=== PATIENT | female | born 1985 | race Hispanic/Latino ===

== ENCOUNTER 2018-04-12 00:36 | Outpatient (CLI) | payer BC ==
[2018-04-12 17:20] LABS: Hemoglobin 12.9 g/dL (12.0-16.0); Mean Corpuscular HGB CONC 33.2 g/dL (32.0-36.0); Mean Corpuscular Hemoglobin 30.5 pg (27.0-31.0); Mean Corpuscular Volume 91.9 fL (78.0-98.0); Mean Platelet Volume 7.7 fL (7.4-10.4); Platelet Count 303 thou/uL (130-400); RBC Distribution Width 12.2 % (11.5-14.5); Red Blood Cell (RBC) Count 4.23 mill/uL (4.20-5.40); White Blood Cell (WBC) Count 7.2 thou/uL (4.8-10.8)
[2018-04-12 17:41] LABS: BHCG - Serum Negative (NEGATIVE); Pregs Control Background? CLEAR/WHITE (CLR/WHITE); Pregs Control Bar Appear? YES (CONTROL BAR)
== END 2018-04-12 00:37 | disposition home or self-care (01) ==
LOC: LABBT 00:36
PROVIDERS: ATTEND Obstetrics & Gynecology
DX: Z01.812 Encounter for preprocedural laboratory examination (principal); N83.202 Unspecified ovarian cyst, left side; N83.201 Unspecified ovarian cyst, right side
CPT/HCPCS: 84703; 85027; 86850; 86900; 86901

== ENCOUNTER 2018-04-17 05:56 | Day surgery (SDC) | payer BC ==
[2018-04-12 15:51] VITALS: BMI 25.8
[2018-04-17] MEDS ORDERED: Famotidine/PF 20 mg/2ml Vial ONE ×2 (06:22→06:24)
[2018-04-17] MEDS ORDERED: Gabapentin 300 MG CAP ONE (06:22)
[2018-04-17] MEDS ORDERED: CeleCOXIB 100 MG CAP ONE ×3 (06:24→06:27)
[2018-04-17] MEDS ORDERED: Fentanyl 100 MCG/2 ML VIAL ONE ×2 (06:24→08:53)
[2018-04-17] MEDS ORDERED: Bupivacaine HCl 0.5%/Epinephrine 1:200,000/PF 30 ml Vial ONE (06:54)
--- NOTE | 2018-04-17 16:43 | OP ---
DATE OF PROCEDURE: 04/17/2018 PREOPERATIVE DIAGNOSES: 1. Bilateral ovarian cyst. 2. Pelvic pain. POSTOPERATIVE DIAGNOSIS: Bilateral dermoid ovarian cyst. PROCEDURES PERFORMED: Robotic-assisted total laparoscopic right and left ovarian cystectomy. SURGEON: Hal Dos Santos DO ASSIST: Veronica Simon DO ANESTHESIA: GETA. COMPLICATIONS: None. OPERATIVE FINDINGS: 1. Normal vaginal mucosa and cervix. 2. Normal-appearing uterus and tubes. 3. Bilaterally enlarged ovaries each approximately 5 to 6 cm. 4. Left ovarian cyst with care and caseous substance noted on rupture of cyst wall. 5. Right ovarian cyst with findings consistent with dermoid cyst. 6. Surgical site hemostatic. DESCRIPTION OF PROCEDURE: The patient was taken back to the OR with IV fluids running. When she was in the OR, anesthesia was obtained and the patient was placed in low dorsal lithotomy position. The abdomen and vagina were then prepped and draped in normal fashion for gynecological laparoscopy. A Godfrey catheter was placed into the bladder to drain the bladder during the case. An operative speculum was placed in the vagina and the anterior lip of the cervix was grasped with a single-tooth tenaculum. Uterus sounded to approximately 7 cm. A Hulka clamp was placed into the uterus and clamped to the cervix in normal fashion if needed for a uterine manipulator with a single-tooth tenaculum. An operative speculum was then removed. The surgeon's gloves were changed and attention was then turned to the laparoscopic portion of the procedure. Beginning at the patient's infraumbilical fold, local anesthesia was placed under the skin. A 12 mm skin incision was made with a scalpel. The Veress needle was placed through this skin incision and the abdomen was insufflated without difficulty. A 12 mm trocar was then placed after the Veress needle was removed through this incision. The laparoscope was then placed through this trocar with the above findings noted. Beginning on the patient's right side, in the right lower quadrant, an 8 mm trocar was placed after local anesthesia was placed under the skin and an 8 mm port incision was made with a scalpel in similar fashion. The left lower quadrant 8 mm trocar and the right upper quadrant 11 mm trocar were all placed under direct visualization without difficulty. After all 4 trocars were placed, the robotic arms were docked to the patient's bedside against the trocars. The laparoscopic instruments were placed under direct visualization into the pelvis, they includes a monopolar scissor and a bipolar grasper. Beginning on the patient's left side, the librarian assistant grasped the left utero-ovarian ligament, stabilized the left ovary. The ovary was inspected and the abnormal versus normal ovarian parenchyma was identified with the monopolar scissors. An incision was made over the abnormal appearing ovarian parenchyma. Through this incision, the monopolar scissors were used with traction countertraction technique to gently dissect the left ovarian dermoid cyst. This dissection was completed with minimal bleeding and with preservation of left ovarian tissue. The cyst was placed into the cul-de-sac and dissection was then addressed on the abnormal appearing contralateral ovary. The ovary was grasped again by the librarian assistant at the utero-ovarian ligament. The ovary was inspected with the abnormal appearing parenchyma identified and incision was made with the monopolar scissors over this abnormal area. The ovarian tissue was then regrasped and with a combination of bipolar and monopolar cautery, the cyst was shelled out of the ovary. The two dermoid cysts were then placed into an EndoCatch bag. The ovaries were inspected bilaterally and irrigated. Any small areas of bleeding within the ovarian capsule were controlled with bipolar and monopolar cautery. Once hemostasis was noted at both dissection area, both dissection points from the ovaries. The pelvis was copiously irrigated and suctioned dry. The EndoCatch bag was removed from the right upper quadrant trocar. The gas was released from the abdomen and no bleeding was noted from the ovary. All instruments were then removed from the abdomen. The gas was released from the abdomen. The patient was taken out of Trendelenburg position. A Vicryl suture was used to close the 12 mm to infraumbilical trocar site at the fascia. All four skin incisions were closed with Monocryl suture and dressed with Dermabond dressing. The tenaculum. The Hulka clamp was removed and the tenaculum site was inspected. The patient was then clean, dry, and taken out of lithotomy position. She was extubated and transferred to the recovery room in good condition. The findings were explained to her and pictures were printed out for the patient's chart. Job ID: [id number] [facility]
== END 2018-04-17 12:40 | disposition home or self-care (01) ==
LOC: SDC 05:56
PROVIDERS: ATTEND Obstetrics & Gynecology
PROC: 0UB24ZZ Excision of Bilateral Ovaries, Percutaneous Endoscopic Approach (ICD-10-PCS; principal; 2018-04-17)
DX: D27.1 Benign neoplasm of left ovary (principal); D27.0 Benign neoplasm of right ovary
CPT/HCPCS: 88307; J0670; J3010; S0028

== ENCOUNTER 2018-04-20 11:17 | Inpatient (IN) | payer BC ==
[~2018-04-20 11:17] MED LIST: ISOVUE-370 76%-LOCM 1 ML ONE
[2018-04-20] MEDS ORDERED: Ondansetron PF 4 MG/2 ML Vial ONE ×2 (12:01→12:05)
[2018-04-20 12:21] LABS: #Eosinphils 0.2 thou/uL (0.0-0.7); #Lymphocytes 1.3 thou/uL (1.20-3.40); #Monocytes 1.1 thou/uL (0.11-0.59); #Neutrophils 8.8 thou/uL (1.40-6.50); %Basophils 0.1 % (0.0-1.0); %Eosinophils 1.8 % (0.0-10.0); %Lymphocytes 11.5 % (21.0-51.0); %Monocytes 9.5 % (0.0-10.0); %Neutrophils 77.1 % (42.0-75.0); Hemoglobin 12.2 g/dL (12.0-16.0); Mean Corpuscular HGB CONC 32.9 g/dL (32.0-36.0); Mean Corpuscular Hemoglobin 30.5 pg (27.0-31.0); Mean Corpuscular Volume 92.5 fL (78.0-98.0); Mean Platelet Volume 7.6 fL (7.4-10.4); Platelet Count 266 thou/uL (130-400); Red Blood Cell (RBC) Count 4.01 mill/uL (4.20-5.40); White Blood Cell (WBC) Count 11.5 thou/uL (4.8-10.8)
[2018-04-20 12:27] LABS: BHCG - Serum Negative (NEGATIVE); Pregs Control Background? CLEAR/WHITE (CLR/WHITE); Pregs Control Bar Appear? YES (CONTROL BAR)
[2018-04-20 12:42] LABS: ALT (SGPT) 15 U/L (8-55); AST (SGOT) 18 U/L (5-34); Albumin 3.9 g/dL (3.5-5.0); Alkaline Phosphatase 69 U/L (40-150); Anion Gap 13 mmol/L (10-20); BUN (Urea Nitrogen) 13 mg/dL (7.0-18.7); Bilirubin, Total 0.4 mg/dL (0.2-1.2); Calc. Creatinine Clearance 0 mL/min (70-130); Calcium 9.4 mg/dL (7.8-10.44); Carbon Dioxide 21 mmol/L (22-29); Chloride 103 mmol/L (98-107); Estimated GFR-MDRD 74; Globulin 3.4 g/dL (2.4-3.5); Glucose 95 mg/dL (70-105); Lipase 18 U/L (8-78); Potassium 4.3 mmol/L (3.5-5.1); Protein, Total 7.3 g/dL (6.0-8.3); Sodium 133 mmol/L (136-145)
--- NOTE | 2018-04-20 12:54 | RAD ---
AP CHEST: History: Recent abdominal surgery. Nausea and vomiting for three days. FINDINGS: AP chest obtained. There is suboptimal inspiratory effort. Mild pulmonary vascular congestion seen. N o evidence of effusions, pneumonia or pneumothorax seen. IMPRESSION: No evidence of acute intrathoracic abnormality seen. POS: [facility]
[2018-04-20] MEDS ORDERED: diphenhydrAMINE 50 MG/ML VIAL ONE (13:48)
[2018-04-20] MEDS ORDERED: Metoclopramide HCl 10 MG/2 ML VIAL ONE (13:48)
[2018-04-20] MEDS ORDERED: Lorazepam 2 MG/ML VIAL ONE (14:40)
--- NOTE | 2018-04-20 16:30 | CT ---
CT ABDOMEN AND PELVIS WITH CONTRAST 04/20/18 HISTORY: Abdominal pain. COMPARISON: Ultrasound 09/10/16. Mild atelectasis in the lung bases. No pericardial effusion. There is marked distention of the urinary bladder. There is fullness of both renal collecting systems and ureters. There is large volume stool within the cecum which is fecalized. There is some mild collection of flu id within the right pericolic gutter and around the ascending colon. The appendiceal tip measures up to 6 mm. No significant periappendiceal inflammation. Common bile duct measures up to 6 mm, upper limits of normal. No acute osseous abnormality. IMPRESSION: 1. Small volume right paracolic gutter fluid as well as fecalization involving the cecum and asc ending colon may be sequela of ileus and postoperative in nature given the history of a recent cyst r emoval. 2. Marked distention of the urinary bladder with reservoir effect of both kidneys and ureters wh ich are mildly dilated with mild hydronephrosis. 3. With the tip of the appendix not well seen due to the mass effect from the very enlarged urin aaron bladder below the base and the mid appendix appears normal. POS: [facility]
[2018-04-20 17:18] VITALS: BMI 25.3
[2018-04-20] MEDS ORDERED: Ondansetron PF 4 MG/2 ML Vial SLOW IVP PRN (21:39)
[2018-04-20 21:42] LABS: Bilirubin Negative (Negative); Blood, Urine Trace (Negative); Clarity CLEAR (Clear); Glucose, Urine (Dipstick) Negative (Negative); Leukocyte Negative (Negative); Nitrite Negative (Negative); Protein, Urine (Dipstick) Negative (Neg-Trace); Specific Gravity, Urine 1.009 (1.002-1.036); Urobilinogen 0.2 mg/dL (0.2-1.0)
[2018-04-20 21:44] LABS: Bacteria/HPF None Seen HPF (None Seen); Hyaline Casts/LPF 0-3 HYALINE CAST LPF (0-3 Hyaline); Pathc Cast-AUWi Flag 0.14 (0-2.49); RBC/HPF 0-3 HPF (0-3); Squamous Epithelial 0-3 HPF (0-3); WBC/HPF 0-3 HPF (0-3)
--- NOTE | 2018-04-21 03:25 | HP ---
PRIMARY CARE PHYSICIAN: Hal Dos Santos DO, MS. CODE STATUS: Full code. TIME OF EVALUATION: 9:30 p.m. CHIEF COMPLAINT: Nausea and vomiting. HISTORY OF PRESENT ILLNESS: This is a 32-year-old female patient with past medical history of no significant medical problems. The patient underwent surgery on April 17, 2018, with Dr. Hal Dos Santos. She went home and then she was not making enough urine and was having spontaneous nausea and vomiting with no clear triggers. No alleviating factors. Abdominal distention associated with abdominal pain. She came to the hospital and has been found to have urinary retention of about 1 L in the gallbladder. For that reason, she is being admitted to the hospital. The patient reported that she had a Godfrey catheter placed during the procedure. Urine was negative could be related to some small lacerations of the urethra. Due to previous Godfrey placement and local inflammation causing urinary obstruction, the CAT scan was also shown that the patient has some bilateral hydronephrosis probably due to retrograde pressure. The patient has received a Godfrey and might be able to resume in the next 24 to 48 hours. Symptoms have improved. REVIEW OF SYSTEMS: CONSTITUTIONAL: No fever, chills, or generalized weakness. RESPIRATORY: No cough, sputum production, or shortness of breath. CARDIOVASCULAR: No chest pain or palpitations. GASTROINTESTINAL: The patient has no nausea, vomiting, diarrhea, or abdominal pain. [employer] PROGRAM[employer]: No dizziness, headache, or feeling lightheaded. GENITOURINARY: Urinary retention. Lower abdomen distention and tenderness. EXTREMITIES: No leg swelling. All other systems were reviewed and negative except for the findings mentioned above. PAST MEDICAL HISTORY: The patient has a history of ovarian cyst. No other significant medical problems. PAST SURGICAL HISTORY: Ovarian cyst surgery on 04/17/2018. PSYCHIATRIC HISTORY: No previous psych history. FAMILY HISTORY: Reviewed and non contributory for current presentation. SOCIAL HISTORY: No alcohol. No drugs. No smoking history. KNOWN ALLERGIES: No known drug allergies. REPORTED MEDICATIONS: 1. Bactrim. 2. Ibuprofen. 3. [place]. PHYSICAL EXAMINATION: VITAL SIGNS: On presentation; blood pressure 103/65 with heart rate of 91, respiratory rate was 16, and temperature 98.9. Pain was 8/10. Oxygen saturation was 97% on room air. GENERAL APPEARANCE: The patient is alert and oriented, in no acute distress. HEENT: Eyes, normal conjunctivae. Moist oral mucosa. Anicteric. No JVD. RESPIRATORY: Bilateral air entry. No rales. No wheezing. Symmetric expansion. CARDIOVASCULAR: Normal rate and regular rhythm. No murmurs. No gallops. No edema. ABDOMEN: Soft. Normal bowel sounds. MUSCULOSKELETAL: Baseline range of motion and strength. No tenderness. SKIN: Warm and intact. No pallor. No rash. No redness. Peripheral pulses are present. Capillary refill seems to be intact. NEUROLOGIC: No evidence of any new focal weakness. Baseline speech. Cranial nerves seems to be intact. PSYCHIATRIC: The patient is in good mood. No anxiety. Optimal judgment. LABORATORY DATA: Labs were reviewed. The patient's white count is 11.5, hemoglobin 12.2, MCV 92.5, and platelet count 266. Chemistry; sodium 133, potassium 4.3, chloride 103, carbon dioxide 21, anion gap 13, BUN 13, creatinine 0.8, GFR 74, glucose 95, calcium 9.4, and total bilirubin 0.4. LFTs were negative. Serum test was negative and UA was negative. Abdomen and pelvis CT, small volume of pericardial fluid in the right pericolic gutter as well as fecalization involving the second ascending colon may be sequelae from ileus, postoperative in nature given the history of recent cyst removal. Mild distention of the urinary bladder with reservoir effect, and both kidneys and the ureters are mildly dilated with mild hydronephrosis with effect of the very enlarged urinary bladder below the base of the mid appendix appears normal. Chest x-ray, no acute areas of intrathoracic abnormalities. ASSESSMENT AND PLAN: The patient will be placed in the hospital with following medical problems: 1. Intractable nausea and vomiting, could be secondary to recent surgery's ileus in postoperative period. We will treat the patient's symptoms. We will continue to monitor. 2. History of urinary retention, could be secondary to surgery, so the patient received Godfrey during the procedure. Could be some mild damage of the urethra and local information may be causing difficulty for the urine to pass, we will pursue Godfrey, we have removed more than 1 L in the bladder, we will continue with the Godfrey placement for the next 24 to 48 hours, it might help the patient to heal urethra and then we might be able to remove the Godfrey. 3. Deep venous thrombosis prophylaxis. Job ID: [id number] [facility]
[2018-04-21 08:40] LABS: #Eosinphils 0.3 thou/uL (0.0-0.7); #Lymphocytes 1.7 thou/uL (1.20-3.40); #Monocytes 0.7 thou/uL (0.11-0.59); #Neutrophils 4.3 thou/uL (1.40-6.50); %Basophils 0.3 % (0.0-1.0); %Eosinophils 3.7 % (0.0-10.0); %Lymphocytes 24.6 % (21.0-51.0); %Monocytes 10.2 % (0.0-10.0); %Neutrophils 61.2 % (42.0-75.0); Hemoglobin 11.8 g/dL (12.0-16.0); Mean Corpuscular Hemoglobin 30.8 pg (27.0-31.0); Mean Corpuscular Volume 93.3 fL (78.0-98.0); Mean Platelet Volume 7.5 fL (7.4-10.4); Platelet Count 236 thou/uL (130-400); Red Blood Cell (RBC) Count 3.83 mill/uL (4.20-5.40); White Blood Cell (WBC) Count 7.1 thou/uL (4.8-10.8)
[2018-04-21 08:59] LABS: Anion Gap 11 mmol/L (10-20); BUN (Urea Nitrogen) 11 mg/dL (7.0-18.7); Calc. Creatinine Clearance 115 mL/min (70-130); Calcium 8.8 mg/dL (7.8-10.44); Carbon Dioxide 22 mmol/L (22-29); Chloride 109 mmol/L (98-107); Estimated GFR-MDRD Greater than 90; Glucose 80 mg/dL (70-105); Potassium 4.2 mmol/L (3.5-5.1); Sodium 138 mmol/L (136-145)
--- NOTE | 2018-04-21 12:25 | PDOC.PN ---
- Subjective Encounter Start Date: 04/21/18 Encounter Start Time: 10:00 -: old records requested/rev Patient seen and examined. No new complaints. No overnight events - Objective Resuscitation Status - Order Detail: 04/20/18 23:16 Resuscitation Status Routine Resuscitation Status: FULL: Full Resuscitation MAR Reviewed: Yes Vital Signs & Weight: Vital Signs (12 hours) Temp Pulse Resp BP Pulse Ox 04/21/18 07:31 98.0 F 80 16 99/59 L 95 04/21/18 01:31 98.2 F 76 14 96/60 97 Weight Weight 143 lb I&O: 04/20/18 04/21/18 04/22/18 06:59 06:59 06:59 Intake Total 0 Output Total 3200 Balance -3200 Result Diagrams: 04/21/18 08:25 04/21/18 08:25 Phys Exam - Physical Examination Constitutional: NAD HEENT: PERRLA, moist MMs, sclera anicteric Neck: no JVD, supple Respiratory: no wheezing, no rales, no rhonchi Cardiovascular: RRR, no significant murmur, no rub Gastrointestinal: soft, non-tender, no distention, positive bowel sounds Musculoskeletal: no edema, pulses present Neurological: non-focal, normal sensation Lymphatic: no nodes Psychiatric: normal affect Skin: no rash, normal turgor Dx/Plan (1) Acute urinary retention Code(s): R33.8 - OTHER RETENTION OF URINE Status: Acute (2) Nausea & vomiting Code(s): R11.2 - NAUSEA WITH VOMITING, UNSPECIFIED Status: Acute (3) Constipation Code(s): K59.00 - CONSTIPATION, UNSPECIFIED Status: Acute - Plan cont current plan of care, plan discussed w/ family * discussed with ob & peg driver * voiding trial * advance diet * treat constipation with miralax * medication reviewed as below * symptomatic treatment. Review of Systems - Review of Systems Respiratory: negative: Cough, Dry, Shortness of Breath, Hemoptysis, SOB with Excertion, Pleuritic Pain, Sputum, Wheezing Cardiovascular: negative: chest pain, palpitations, orthopnea, paroxysmal nocturnal dyspnea, edema, light headedness, other Gastrointestinal: negative: Nausea, Vomiting, Abdominal Pain, Diarrhea, Constipation, Melena, Hematochezia, Other Genitourinary: negative: Dysuria, Frequency, Incontinence, Hematuria, Retention , Other Musculoskeletal: negative: Neck Pain, Shoulder Pain, Arm Pain, Back Pain, Hand Pain, Leg Pain, Foot Pain, Other - Medications/Allergies Allergies/Adverse Reactions: Allergies Allergy/AdvReac Type Severity Reaction Status Date / Time No Known Allergies Allergy Verified 04/12/18 15:51 Medications: Current Medications Bethanechol Chloride (Urecholine) 10 mg PO Q8HR PRN PRN Reason: urinary retention Ondansetron HCl (Zofran) 4 mg SLOW IVP Q4H PRN PRN Reason: Nausea/Vomiting Last Admin: 04/20/18 21:46 Dose: 4 mg
--- NOTE | 2018-04-21 13:45 | CON ---
DATE OF CONSULTATION: 04/21/2018 REASON FOR CONSULTATION: Urinary retention postop. HISTORY OF PRESENT ILLNESS: Ms. Makenzie Roberto is a 32-year-old female, who underwent a scheduled robotic assisted bilateral ovarian cystectomy for dermoid cyst on April 17, 2018. Her procedure was uncomplicated and her pathology has since reported benign dermoid cyst. The patient presented to our office on postoperative day #1 with complaints of dysuria and urinary urgency. The patient was started on Bactrim DS at that time for presumed urinary tract infection. The patient then presented to the ER yesterday evening on postoperative day #4 with complaints of difficulty voiding, nausea, and back pain. The patient was evaluated in the ER and was admitted by the hospitalist group for urinary retention. The patient since had a Godfrey catheter in place reports that her nausea and vomiting has resolved and reports that she is very hungry and is requesting food at this time. She endorses constipation and denies any diarrhea. She denies any vaginal discharge. She denies any abdominal pain and reports that she has not required any pain medication postoperative at home and that her only discomfort has been related to attempts to avoid. REVIEW OF SYSTEMS: Negative except as stated above. PAST MEDICAL HISTORY: Negative. PAST SURGICAL HISTORY: Robotic assisted bilateral ovarian cystectomy on 2018. FAMILY HISTORY: Noncontributory. SOCIAL HISTORY: . Denies alcohol, tobacco, or drug use. ALLERGIES: NO KNOWN DRUG ALLERGIES. MEDICATIONS: Bactrim DS b.i.d., recently completed for UTI. PHYSICAL EXAMINATION: VITAL SIGNS: Afebrile with a temperature of 98.0, pulse 80, respirations 16, O2 saturation 95%, and blood pressure 99/59. GENERAL: No acute distress. Alert and oriented. HEENT: Grossly normal. RESPIRATORY: Nonlabored breathing. ABDOMEN: Soft and nondistended. Four laparoscopic port sites clean, dry, and intact with no tenderness around the incisions and no drainage noted. MUSCULOSKELETAL: Grossly normal. SKIN: No rashes. NEUROLOGIC: Grossly normal. PSYCHIATRIC: Appropriate mood and affect. DIAGNOSTIC DATA: White blood cell count 7.1, hemoglobin 11.8. AST 18, ALT 15, alkaline phosphatase 69. Urine with trace blood, otherwise negative. Abdomen and pelvis CT scan, impression; significant for distention of urinary bladder and bilateral mild hydronephrosis, see report for full details. ASSESSMENT AND PLAN: Ms. Makenzie Roberto is a 32-year-old postoperative day #4 after robotic assisted bilateral ovarian cystectomy for dermoid cyst. She had an uncomplicated procedure; however, her postoperative course has been complicated by a suspected urinary tract infection on postoperative day #1 and subsequent urinary retention on postoperative day #3. With a Godfrey catheter in place, the patient' s symptoms have resolved. She denies any nausea or vomiting. She denies any abdominal pain and reports hunger and requested to eat. I discussed with the patient and her in Vietnamese, the pathology report from her surgery earlier this week. We also discussed the urinary retention as a possible result of recent anesthesia as well as urinary tract infection. I discussed the case with her admitting physician, Dr. Gonsalves. We discussed removing her Godfrey today with a voiding trial this afternoon. We discussed a trial of bethanechol p.r.n. for urinary retention if needed. I discussed this with the patient as a potential medication at the time of discharge that she can use as needed at home as well. The patient's diet has been ordered as clear liquid with advancing as tolerated, and we discussed the stool softeners as needed for constipation. The patient and her family's questions were answered in detail. I am hopeful that she will be able to return home after successful voiding trial later today. The patient has follow up arranged for my office next week. Job ID: [id number] [facility]
[2018-04-21] MEDS ORDERED: Lidocaine Viscous Sol 2% 15 ml UD Cup FS SCH (18:30)
[2018-04-22] MEDS ORDERED: Enoxaparin Sodium 40 MG/0.4 ML SYRINGE SC SCH (09:30)
--- NOTE | 2018-04-22 09:52 | PDOC.PN ---
- Subjective Encounter Start Date: 04/22/18 Encounter Start Time: 09:00 Patient seen and examined. pt has periumbilical discomfort, had BM and passing gas, No overnight events yesterday pt was not able to void, so required repeat rod - Objective Resuscitation Status - Order Detail: 04/20/18 23:16 Resuscitation Status Routine Resuscitation Status: FULL: Full Resuscitation MAR Reviewed: Yes Vital Signs & Weight: Vital Signs (12 hours) Temp Pulse Resp BP Pulse Ox 04/22/18 07:27 98.4 F 74 19 96/62 98 Weight Weight 143 lb I&O: 04/21/18 04/22/18 04/23/18 06:59 06:59 06:59 Intake Total 0 Output Total 3200 Balance -3200 Result Diagrams: 04/21/18 08:25 04/21/18 08:25 Phys Exam - Physical Examination Constitutional: NAD HEENT: PERRLA, moist MMs, sclera anicteric Neck: no JVD, supple Respiratory: no wheezing, no rales, no rhonchi Cardiovascular: RRR, no significant murmur, no rub Gastrointestinal: soft, non-tender, no distention, positive bowel sounds Musculoskeletal: no edema, pulses present Neurological: non-focal, normal sensation, moves all 4 limbs Lymphatic: no nodes Psychiatric: normal affect, A&O x 3 Skin: no rash, normal turgor Dx/Plan (1) Acute urinary retention Code(s): R33.8 - OTHER RETENTION OF URINE Status: Acute (2) Nausea & vomiting Code(s): R11.2 - NAUSEA WITH VOMITING, UNSPECIFIED Status: Acute (3) Constipation Code(s): K59.00 - CONSTIPATION, UNSPECIFIED Status: Resolved (4) S/P laparoscopic surgery Code(s): Z98.890 - OTHER SPECIFIED POSTPROCEDURAL STATES Status: Acute - Plan cont current plan of care, plan discussed w/ family * currently on bathenocol * pt has rod * urology opinion will be obtained * may be voiding trial vs intermittent self catheterization * discussed with . Review of Systems - Review of Systems ENT: negative: Ear Pain, Ear Discharge, Nose Pain, Nose Discharge, Nose Congestion, Mouth Pain, Mouth Swelling, Throat Pain, Throat Swelling, Other Respiratory: negative: Cough, Dry, Shortness of Breath, Hemoptysis, SOB with Excertion, Pleuritic Pain, Sputum, Wheezing Cardiovascular: negative: chest pain, palpitations, orthopnea, paroxysmal nocturnal dyspnea, edema, light headedness, other Gastrointestinal: negative: Nausea, Vomiting, Abdominal Pain, Diarrhea, Constipation, Melena, Hematochezia, Other Genitourinary: Retention. negative: Dysuria, Frequency, Incontinence, Hematuria , Other Musculoskeletal: negative: Neck Pain, Shoulder Pain, Arm Pain, Back Pain, Hand Pain, Leg Pain, Foot Pain, Other Skin: negative: Rash, Lesions, Musa, Bruising, Other - Medications/Allergies Allergies/Adverse Reactions: Allergies Allergy/AdvReac Type Severity Reaction Status Date / Time No Known Allergies Allergy Verified 04/12/18 15:51 Medications: Current Medications Bethanechol Chloride (Urecholine) 10 mg PO Q8HR PRN PRN Reason: urinary retention Last Admin: 04/21/18 15:29 Dose: 10 mg Enoxaparin Sodium (Lovenox) 40 mg SC 0930 DIVINE Stop: 04/22/18 11:30 Ondansetron HCl (Zofran) 4 mg SLOW IVP Q4H PRN PRN Reason: Nausea/Vomiting Last Admin: 04/20/18 21:46 Dose: 4 mg
--- NOTE | 2018-04-22 14:44 | CON ---
DATE OF CONSULTATION: 04/22/2018 REASON FOR CONSULTATION: Urinary retention. HISTORY OF PRESENT ILLNESS: Ms. Roberto is a pleasant 32-year-old female, who underwent robotic-assisted laparoscopic ovarian cyst removal by Dr. Hal Dos Santos on April 17, 2018. She was admitted on April 21 due to urinary retention, postop ileus. She presented to the emergency room, postvoid residual over 1 L, CT demonstrates mild bilateral hydronephrosis, significantly distended bladder; therefore, Godfrey catheter was placed. She was admitted on April 21, and subsequently, the Godfrey catheter was removed on day of admission. She was unable to void and I was called last night as nursing staff had difficulty passing a catheter. However, with different nursing staff urethral Godfrey catheter was placed uneventfully. There is no prior history of urethral trauma, difficult Godfrey catheter placement. Godfrey passed without significant issues. 800 mL of postvoid residual obtained. She states that she has been passing gas this morning, feels better. Denies nausea or vomiting. Denies prior history of urinary retention, incontinence, or recurrent UTI. PAST MEDICAL HISTORY: Negative. PAST SURGICAL HISTORY: Robotic-assisted bilateral ovarian cystectomy by Dr. Hal Dos Santos on April 17, 2018. FAMILY HISTORY: Negative. SOCIAL HISTORY: Negative for illicit drug use, alcohol, or tobacco. ALLERGIES: NO KNOWN DRUG ALLERGIES. PREVIOUS MEDICATION: Bactrim DS one p.o. b.i.d. REVIEW OF SYSTEMS: Ten-point review of systems as above, otherwise noncontributory. PHYSICAL EXAMINATION: VITAL SIGNS: Stable. Temperature 98.4, pulse 74, respirations 19, O2 saturation 98%, and blood pressure 96/62. 3200 of clear yellow urine. GENERAL: The patient appears to be in no acute distress. HEENT: Unremarkable. HEART: Regular rate. LUNGS: Clear. ABDOMEN: Soft. No rigidity. No rebound. : Godfrey catheter is adequately in place. Her vaginal bimanual exam demonstrates NO anatomical abnormality of concern. Urethral meatus is easily visualized. EXTREMITIES: No cyanosis, clubbing, or edema. PERTINENT LABORATORY DATA: White count 7, hemoglobin 11, platelet 236. UA is trace blood, otherwise unremarkable. Culture preliminary negative. Creatinine is 0.7. There is no prior urine culture. CT of the abdomen and pelvis with contrast, which I reviewed myself. There is small amount of right pericolic gutter fluid and fecalization of the cecum. Markedly distended bladder with reservoir effect of bilateral kidneys, mildly dilated hydronephrosis. Per my review, her bladder is distended significantly to the level of L5 with prominence of the ureters to the level of the bladder consistent with distended bladder. IMPRESSION AND PLAN: Ms. Roberto is a pleasant 32-year-old female, status post bilateral robotic-assisted ovarian cystectomy, admitted for urinary retention, ileus. From urologic perspective, the patient can be discharged if medically cleared with indwelling urethral Godfrey catheter. discontinue bethanechol. No need for antibiotics. As there was significant overdistention injury with large postvoid residual and hydronephrosis, I do not recommend indwelling Godfrey catheter to be removed for at least 1 to 2 weeks. Due to significantly distended bladder , bladder rest with indwelling Godfrey catheter is advised. will provide outpatient followup for voiding trial. To optimize successful voiding trial, ileus should be resolved / daily bowel movement prior to Godfrey catheter removal. Job ID: [id number] [facility]
[2018-04-23 09:24] VITALS: BP 97/61; TEMP 98.1
--- NOTE | 2018-04-23 09:55 | DIS ---
DATE OF ADMISSION: 04/20/2018 DATE OF DISCHARGE: 04/23/2018 PRIMARY CARE PHYSICIAN: Hal Dos Santos DO MS. DISCHARGE DISPOSITION: Home. PRIMARY DISCHARGE DIAGNOSES: 1. Acute urinary retention. 2. Postop nausea and vomiting, resolved. 3. Constipation. SECONDARY DISCHARGE DIAGNOSIS: Status post laparoscopic ovarian cystectomy. PRIMARY PROCEDURE/OPERATION: None. RADIOLOGICAL INVESTIGATION: CT abdomen and pelvis showed urinary retention with mild hydronephrosis. SIGNIFICANT LABORATORY DATA: WBC 7.1, hemoglobin 11.8, platelet 236. Sodium 138, potassium 4.2, BUN 11, creatinine 0.71, calcium 8.8. LFT normal. test negative. Urinalysis normal. Urine culture negative. DISCHARGE MEDICATIONS: The patient will continue to take [place] 5 one tablet q.6 hourly p.r.n. The patient will take ibuprofen as needed. The patient will finish her Bactrim, which was prescribed as an outpatient basis. CONTRAINDICATION: None. CODE STATUS: Full code. INPATIENT WATER TAXI FERRY OPERATOR: Dr. Hal Dos Santos. OB-TIP STRETCHER was consulted while in hospital. Dr. Gladys Llanos was consulted while in hospital. TEST RESULT PENDING ON DISCHARGE: None. ALLERGIES: NO KNOWN DRUG ALLERGIES. DISCHARGE PLAN: Posthospital, the patient will follow up with Dr. Llanos on April 28, 2018, at 11:15 a.m. The patient will follow up with Dr. Hal Dos Santos. HOSPITAL COURSE: A 32-year-old female, who had ovarian cystectomy as an outpatient basis. Postoperatively, the patient was discharged home, but she had difficulty urination and that is why she came to emergency room. In the emergency room, she was found with acute urinary retention and the CT abdomen and pelvis also confirmed urinary retention with mild hydronephrosis. She was also having constipation/ileus. Her constipation/ileus resolved with supportive treatment. While in hospital, we tried one time removal of Godfrey catheter, but she was not able to void and that is why we have to do repeat Godfrey catheter. We consulted Urology and they recommended to continue Godfrey catheter up to 2 weeks and they will do voiding trial outpatient basis. OB-TIP STRETCHER doctor started bethanechol, but Urology was not recommending that medication and that is why that medication was not prescribed. At this point, the patient is completely medically stable. I have seen and examined the patient at bedside today. Routine care for Bekah was discussed. PHYSICAL EXAMINATION: VITAL SIGNS: Currently, temperature 98.6, pulse 73, respiratory rate is 12, saturation 97%, blood pressure 100/62, weight 143 pounds. GENERAL: The patient is currently alert and awake, in no obvious acute distress. HEAD: Normocephalic, atraumatic. LUNGS: Clear without any rhonchi. CARDIAC: S1, S2 regular without any murmur. ABDOMEN: Soft and benign. EXTREMITIES: No edema. NEUROLOGIC: Nonfocal examination. Overall, the patient is medically stable for discharge today. Job ID: [id number]
== END 2018-04-23 10:13 | disposition home or self-care (01) | DRG 699 ==
LOC: ERS 11:17 → T4-B 17:10
PROVIDERS: ADMIT Emergency Medicine; ATTEND Emergency Medicine
DX: N99.89 Other postprocedural complications and disorders of genitourinary system (principal); K56.7 Ileus, unspecified; N13.30 Unspecified hydronephrosis; R33.8 Other retention of urine; R11.2 Nausea with vomiting, unspecified; K59.00 Constipation, unspecified
CPT/HCPCS: 36415; 71045; 74177; 80048; 80053; 81003; 81015; 83690; 84703; 85025; 87086; 88307; 96361; 96365; 96375; J0670; J1200; J1650; J2001; J2060; J2405; J2704; J2765; J3010; J3490; Q9966; S0028